=== PATIENT | female | born 1975 | race Caucasian/White ===

== ENCOUNTER 2021-08-12 17:09 | Emergency (ER) | payer OTHER, SELFPAY ==
[2021-08-12 17:20] VITALS: BP 166/98; PULSE 122; RESP 18; TEMP 37.3; O2SAT 99
--- NOTE | 2021-08-12 17:22 | ED.URI ---
HPI - URI/Sore Throat General Chief Complaint: Upper Respiratory Infection Stated Complaint: sob/congestion/cough Time Seen by Provider: 08/12/21 17:25 Source: patient and RN notes reviewed Mode of arrival: ambulatory Limitations: no limitations History of Present Illness HPI Narrative: 46-year-old female presents to the [facility] with significant other with 2 to 3 weeks of cough, congestion. States that she also wants to be seen for a vaginal itch which she believes to be a yeast infection. Has a history of anxiety, asthma MD elicited complaint: cough Related Data Home Medications Medication Instructions Recorded Confirmed albuterol sulfate 2 inh INHALATION DIRECTED 08/12/21 08/12/21 budesonide-formoterol [Symbicort] 1 inh INHALATION DAILY 08/12/21 08/12/21 bupropion HCl 150 mg PO DAILY 08/12/21 08/12/21 famotidine 40 mg PO DAILY 08/12/21 08/12/21 lisdexamfetamine [Vyvanse] 30 mg PO DAILY 08/12/21 08/12/21 pantoprazole 40 mg PO DAILY 08/12/21 08/12/21 Allergies Allergy/AdvReac Type Severity Reaction Status Date / Time No Known Allergies Allergy Unverified 08/12/21 17:32 Review of Systems Review of Systems: All systems reviewed & are unremarkable except as noted in HPI and below Constitutional: Constitutional: Reports no additional constitutional complaints, Denies chills and Denies fever(s) Eyes: Eyes: Reports no additional eye complaints ENT: Reports system reviewed and no additional complaints, except as documented Cardiovascular: Cardiovascular: Reports no additional cardiovascular complaints and Denies chest pain Respiratory: Respiratory: Reports as per HPI and Reports cough Gastrointestinal: Gastrointestinal: Reports no additional gastrointestinal complaints Genitourinary: Genitourinary: Reports as per HPI, Denies genital lesions and Reports vaginal discharge Musculoskeletal: Musculoskeletal: Reports no additional musculoskeletal complaints Integumentary/Breasts: Skin/Breast: Reports system reviewed and no additional complaints, except as docu Neurologic: Reports system reviewed and no additional complaints, except as documented Psychiatric: Psychiatric: Reports no additional psychiatric complaints Allergic/Immunologic: Allergic/Immunologic: Reports no additional allergic/immunologic complaints PMFSH Past Medical History Medical History (Updated 08/12/21 @ 19:09 by Isis Lopez) Anxiety Asthma Surgical History Surgical History (Updated 08/12/21 @ 19:09 by Isis Lopez) No significant past surgical history Social History Social History (Updated 08/12/21 @ 19:10 by Isis Lopez) Smoking status: Smoker, status unknown Gender identity (if verbalized by the patient): Female Comments At the time of my signature, I reviewed and agree with the nursing past medical, surgical, social, and family history. There is no relevant family history pertinent to the patient complaint. Exam Const: General: healthy appearing, no acute distress and alert Nutritional Appearance: well nourished Orientation/consciousness: patient oriented x3 Limitations: no limitations HENMT: Head: normal to inspection Ears: external ears normal, TM's normal bilaterally and EAC's normal Eyes: Conjunctivae: conjunctivae normal Pupils: Equal, round and reactive pupils present Neck: Neck: normal visual inspection, no lymphadenopathy and no meningeal signs Chest: Chest palpation & inspection: normal inspection of the chest Resp: Effort & Inspection: normal respiratory effort and no use of accessory muscles Auscultation: clear to auscultation bilaterally, no crackles, no rales, no rhonchi and no wheezes Cardio: Rate: tachycardic Rhythm: regular rhythm GI: GI Palp: Yes Soft to palpation and No Tenderness to palpation present (GI) : General: Yes no CVA tenderness Back/Spine/Pelvis: Back: no CVA tenderness Skin: General skin exam: normal color Rashes: no rashes Wounds: no wounds Neuro: Gener
== END 2021-08-12 17:38 | disposition home or self-care (01) ==
PROVIDERS: Emergency Provider Nurse Practitioner; PCP Nurse Practitioner Adult Health
DX: J40 Bronchitis, not specified as acute or chronic (principal); B37.3 Candidiasis of vulva and vagina; F41.9 Anxiety disorder, unspecified; J45.909 Unspecified asthma, uncomplicated
CPT/HCPCS: 99203; G0463

== ENCOUNTER 2022-08-02 13:49 | Emergency (ER) | payer OTHER, SELFPAY ==
[2022-08-02 14:03] VITALS: BP 150/99; PULSE 89; RESP 16; TEMP 36.6; O2SAT 99
--- NOTE | 2022-08-02 14:18 | ED.URI ---
HPI - URI/Sore Throat General Chief Complaint: Upper Respiratory Infection Stated Complaint: SORE THROAT/SNEEZING/HEADACHE/EARS CLOGGED Time Seen by Provider: 08/02/22 14:18 Source: patient Mode of arrival: ambulatory Limitations: no limitations History of Present Illness HPI Narrative: 47-year-old female presents with complaint of nasal congestion, cough, fatigue, low-grade fever for 6 days. States symptoms 1st started with sneezing. Started prednisone for her asthma but has been helping her mother move and misplaced bottle. Here for new prescription. Denies shortness of breath and wheezing but reports presenting exacerbation. Has been using inhaler. Wants to see if she has something that is contagious her mother. Asking for COVID testing. All systems reviewed and negative except as noted above. Related Data Home Medications Medication Instructions Recorded Confirmed albuterol sulfate 90 mcg/actuation 2 inh inhalation DIRECTED 08/12/21 08/02/22 aerosol inhaler budesonide-formoterol HFA 160 1 inh inhalation DAILY 08/12/21 08/02/22 mcg-4.5 mcg/actuation aerosol inhaler (Symbicort) lisdexamfetamine 30 mg capsule 30 mg PO DAILY 08/12/21 08/02/22 (Vyvanse) pantoprazole 40 mg tablet,delayed 40 mg PO DAILY 08/12/21 08/02/22 release Allergies Allergy/AdvReac Type Severity Reaction Status Date / Time No Known Allergies Allergy Unverified 08/02/22 14:07 Review of Systems Review of Systems: CONSTITUTIONAL: Reports fever, chills, or sweats. EYES: Denies visual changes, redness, or discharge. ENT: Reports rhinorrhea, congestion, sore throat. Denies otalgia. CARDIOVASCULAR: Denies chest pain, palpitations, or edema. RESPIRATORY: Reports cough. Denies dyspnea. GASTROINTESTINAL: Denies abdominal pain, nausea, vomiting, or diarrhea. GENITOURINARY: Denies dysuria or hematuria. SKIN: Denies rash or itching. MUSCULOSKELETAL: Denies back pain, joint pain, or myalgia. NEUROLOGIC: Denies headache, numbness, or weakness. PSYCHIATRIC: Denies anxiety or depression. All other systems reviewed are negative, except as documented in HPI. [facility] Past Medical History Medical History (Updated 08/02/22 @ 14:52 by Blanquita Angela NP) Anxiety Asthma Surgical History Surgical History (Updated 08/12/21 @ 19:09 by Isis Lopez APRN) No significant past surgical history Social History Social History (Updated 08/12/21 @ 19:10 by Isis Lopez APRN) Smoking status: Smoker, status unknown Gender identity (if verbalized by the patient): Female Comments At time of signature, agree with nursing past medical, surgical, social and family history. There is no relevant family history pertinent to the presenting complaint. Exam Narrative: GENERAL: This is a well-nourished, well-developed patient. Ill-appearing but in no distress. HEAD: normocephalic, atraumatic. EYES: PERRL. Sclera clear/white. Vision is grossly intact. EARS: External ears normal, auditory canals clear and without drainage, clear fluid bilateral TMs without erythema. NOSE: External nose normal with moderate nasal congestion, erythema and swelling to the ears. THROAT: Mucous membranes moist, posterior pharynx clear. NECK: Neck supple, non-tender without lymphadenopathy, masses or thyromegaly. CARDIOVASCULAR: Regular rate and rhythm without murmurs, gallops, or rubs. RESPIRATORY: Clear to auscultation. Breath sounds equal bilaterally. No wheezes, rales, or rhonchi. SKIN: warm, Dry, intact with no suspicious lesions or rash, good texture and turgor. NEURO: awake, alert, and oriented to person, place and time. There were no obvious focal neurologic abnormalities. EXTREMITIES: No joint tenderness, effusion, or edema noted. Course Course Level of Care: Express Care Visit Vital Signs Vital signs: Vital Signs Temperature 36.6 C 08/02/22 14:03 Pulse Rate 89 08/02/22 14:03 Respiratory Rate 16 08/02/22 14:03 Blood Pressure 150
== END 2022-08-02 14:58 | disposition home or self-care (01) ==
PROVIDERS: Emergency Provider Nurse Practitioner Family; PCP Nurse Practitioner Adult Health
DX: U07.1 COVID-19 (principal); J45.909 Unspecified asthma, uncomplicated
CPT/HCPCS: 87426; 87804; 99213; C9803; G0463

== ENCOUNTER 2024-10-05 13:56 | Outpatient (CLI) | payer OTHER, SELFPAY ==
--- NOTE | ~2024-10-05 | XR_ITS ---
HISTORY: PAIN OF RIGHT SHOULDER JOINT COMPARISON: None TECHNIQUE: 3 views of the right shoulder were performed. FINDINGS: No acute fracture. The glenohumeral and acromioclavicular joint space is maintained The visualized portion of the adjacent right lung is clear. The humeral head is well seated within the glenoid fossa. IMPRESSION: No acute fracture or anterior dislocation. Reviewed, dictated and finalized at location A. [employer] SPECIALIST
== END 2024-10-05 13:57 | disposition home or self-care (01) ==
PROVIDERS: PCP Family Medicine; Visit Provider Family Medicine
DX: M25.511 Pain in right shoulder (principal)
CPT/HCPCS: 73030

== ENCOUNTER 2024-11-19 08:22 | Emergency (ER) | payer OTHER, SELFPAY ==
--- NOTE | ~2024-11-19 | XR_ITS ---
HISTORY: cough,fever x 1.5 days,mid/ant Lt rib pain x 1 wk, hx asthma COMPARISON: 11/08/2014 TECHNIQUE: 3 views of the left ribs were performed along with a PA and lateral of the chest FINDINGS: No acute displaced fracture is appreciated. The cardiomediastinal silhouette is unremarkable. The lungs are clear. Bone mineralization is age-appropriate. IMPRESSION: No acute displaced rib fracture, as detailed above. Reviewed, dictated and finalized at location A. [employer] SUPERINTENDENT
[2024-11-19 08:52] VITALS: BP 124/74; PULSE 93; RESP 16; TEMP 35.9; O2SAT 100
--- NOTE | 2024-11-19 09:15 | ED_ITS ---
HPI - URI/Sore Throat General Chief Complaint: Upper Respiratory Infection Stated Complaint: Stomach/Lung Pain Time Seen by Provider: 11/19/24 09:16 Source: patient and RN notes reviewed Mode of arrival: ambulatory Limitations: no limitations History of Present Illness HPI Narrative: 49-year-old presents with concern of for cough for 2 days that is productive, having chills and pain in her left lower rib area. She has a history of asthma, she has been using her inhaler every 4-6 hours. She denies shortness of breath. MD elicited complaint: other (shortness of breath) Related Data Home Medications ?Medication ?Instructions ?Recorded ?Confirmed ?Last Taken ?Type albuterol sulfate 90 mcg/actuation 2 inh inhalation DIRECTED 08/12/21 08/02/22 Unknown History aerosol inhaler budesonide-formoterol HFA 160 1 inh inhalation DAILY 08/12/21 08/02/22 Unknown History mcg-4.5 mcg/actuation aerosol inhaler (Symbicort) lisdexamfetamine 30 mg capsule 30 mg PO DAILY 08/12/21 08/02/22 Unknown History (Vyvanse) pantoprazole 40 mg tablet,delayed 40 mg PO DAILY 08/12/21 08/02/22 Unknown History release carbamide peroxide 6.5 % ear drops drp 11/19/24 Unknown History (Ear Drops (carbamide peroxide)) famotidine 20 mg tablet mg 11/19/24 Unknown History fenofibrate 160 mg tablet mg 11/19/24 Unknown History fluticasone propionate 50 intranasal 11/19/24 Unknown History mcg/actuation nasal spray,suspension lisdexamfetamine 20 mg capsule mg 11/19/24 Unknown History (Vyvanse) rosuvastatin 10 mg tablet mg 11/19/24 Unknown History Allergies Allergy/AdvReac Type Severity Reaction Status Date / Time No Known Allergies Allergy Unverified 08/02/22 14:07 Review of Systems Review of Systems: CONSTITUTIONAL: Denies malaise, sweats, or fever. Reports chills EYES: Denies visual changes, redness, or discharge. ENT: Reports rhinorrhea, congestion CARDIOVASCULAR: Denies chest pain, palpitations, or edema. RESPIRATORY: Reports productive cough. Denies dyspnea. GASTROINTESTINAL: Denies abdominal pain, nausea, vomiting, diarrhea SKIN: Denies rash or itching. MUSCULOSKELETAL: Denies myalgia. Reports left rib pain NEUROLOGIC: Denies headache. All systems reviewed & are unremarkable except as noted in HPI and below PMFSH Past Medical History Medical History (Updated 11/19/24 @ 09:43 by Isis Cuenca NP) Asthma Anxiety Surgical History Surgical History (Updated 08/12/21 @ 19:09 by Isis Lopez APRN) No significant past surgical history Social History Social History (Updated 08/12/21 @ 19:10 by Isis Lopez APRN) Smoking status: Smoker, status unknown Gender identity (if verbalized by the patient): Female Comments At time of signature, agree with nursing past medical, surgical, social and family history. There is no relevant family history pertinent to the presenting complaint Exam Narrative: GENERAL: Well-appearing, well-nourished, and in no acute distress. HEAD: Normocephalic EYES: PERRLA, conjunctivae clear ENT: Nares clear. Mucous membranes moist. TM pearly haque with sharp light reflex bilaterally; no tragal tenderness. Oropharynx not erythematous without lesions. Tonsils not enlarged and without exudate, no drooling, no hoarseness, no trismus, uvula midline. NECK: Supple. No lymphadenopathy CHEST: Scattered wheeze, otherwise breath sounds equal. No rhonchi, rales, or stridor. No respiratory distress, speaks in full sentences. Left lower rib tenderness HEART: Regular rate and rhythm. No murmur heard. SKIN: Warm, dry, no rash. NEURO: Alert and oriented x3. PSYCH: Normal mood and affect Course Course Emergency Course: Patient is aware of diagnosis, understands and agrees to treatment plan. Anticipatory guidance given. Patient agrees to follow-up as directed and is aware of reasons to seek care at the emergency department. Portions of this record may have been created with voice recognition software Level of Care: Express Care Visit Vital Signs Vital signs: Vital Signs Temperature 96.7 F L 11/19/24 08:52 Pulse Rate 93 11/19/24 08:52 Respiratory Rate 16 11/19/24 08:52 Blood Pressure 124/74 11/19/24 08:52 Pulse Oximetry 100 11/19/24 08:52 Temperature 96.7 F L 11/19/24 08:52 Pulse Rate 93 11/19/24 08:52 Respiratory Rate 16 02/26/25 08:52 Blood Pressure 124/74 11/19/24 08:52 Pulse Oximetry 100 11/19/24 08:52 Oxygen Delivery Room Air 11/19/24 09:02 Reviewed. MDM - URI/Sore Throat MDM Narrative Medical decision making narrative: Differential diagnosis considered: Sanches virus, strep pharyngitis, allergic rhinitis, upper respiratory tract infection, sinusitis, rhinosinusitis, nasopharyngitis. viral pharyngitis, otitis media, otitis externa, pneumonia, bronchitis, viral cough syndrome, viral syndrome, and influenza. Exam findings show no acute concerns or changes; patient is non-toxic appearing and is in no distress. Patient is appropriate for outpatient treatment and follow-up. Lab Data Attestation: I reviewed the patient's lab results. Imaging Data My impression: Images reviewed, interpreted by radiologist, agree, see report. Radiologist's impression: HISTORY: cough,fever x 1.5 days,mid/ant Lt rib pain x 1 wk, hx asthma COMPARISON: 11/08/2014 TECHNIQUE: 3 views of the left ribs were performed along with a PA and lateral of the chest FINDINGS: No acute displaced fracture is appreciated. The cardiomediastinal silhouette is unremarkable. The lungs are clear. Bone mineralization is age-appropriate. IMPRESSION: No acute displaced rib fracture, as detailed above. Critical Care Time Critical Care Time Critical Care Time: No Discharge Plan Discharge Clinical Impression: Cough Patient Disposition: Home, Self-Care Condition: Stable Instructions: Acute Cough (ED) Additional Instructions: 1) Please follow-up with your primary care doctor in the next 1-2 days. 2) If you have any worsening of symptoms or any other urgent concerns please go to the ER. 3) Please take medications as prescribed and continue taking your home medications as usual. 4) Please read and follow information included in discharge instructions. Patient Language: Finnish Prescriptions: New prednisone 20 mg tablet 40 mg PO DAILY 5 Days Qty: 10 0RF albuterol sulfate 90 mcg/actuation HFA aerosol inhaler 2 puff INHALATION QID PRN (Reason: shortness of breath or wheezing) Qty: 8.5 0RF albuterol sulfate 2.5 mg /3 mL (0.083 %) solution for nebulization 2.5 mg inhalation Q4H PRN (Reason: shortness of breath or wheezing) Qty: 75 0RF No Action pantoprazole 40 mg tablet,delayed release (DR/EC) 40 mg PO DAILY albuterol sulfate 90 mcg/actuation HFA aerosol inhaler 2 inh INHALATION DIRECTED Vyvanse 30 mg capsule 30 mg PO DAILY budesonide-formoterol [Symbicort] 160-4.5 mcg/actuation HFA aerosol inhaler 1 inh INHALATION DAILY famotidine 20 mg tablet Ear Drops (carbamide peroxide) 6.5 % drops fluticasone propionate 50 mcg/actuation spray,suspension INTRANASAL rosuvastatin 10 mg tablet fenofibrate 160 mg tablet lisdexamfetamine [Vyvanse] 20 mg capsule Follow-up/Referrals: PHYSICIAN,ADULT HEALTH CLINICAL NURSE SPECIALIST [Primary Care Provider] - Stand Alone Forms: Work/School Release IP Time of Disposition: 09:35
[2024-11-19 09:24] LABS: EDCOVIDSCREEN Negative (Negative); EDINFLUASCREEN Negative (Negative); EDINFLUBSCREEN Negative (Negative)
== END 2024-11-19 09:45 | disposition home or self-care (01) ==
PROVIDERS: Emergency Provider Nurse Practitioner
DX: R05.9 Cough, unspecified (principal); Z20.822 Contact with and (suspected) exposure to COVID-19; J45.909 Unspecified asthma, uncomplicated
CPT/HCPCS: 71046; 71100; 87426; 87804; 99213; G0463